=== PATIENT | male | born 1960 | race Two or more races ===

== ENCOUNTER 2016-06-08 10:40 | Day surgery (SDC) | payer OTHER ==
--- NOTE | 2016-06-07 16:29 | HP ---
DATE OF CLINIC: 06/03/2016 BENNETT GASTELUM : 1960 PLANNED PROCEDURE: Right Shoulder Arthroscopic Rotator Cuff Repair, Subacromial Decompression and Possible Biceps Tenotomy vs. Tenodesis DATE OF SURGERY: June 08, 2016 SURGEON: Nadeem Fletcher M.D. HISTORY OF PRESENT ILLNESS Bennett Gastelum is a 55 year old male. * Medication list reviewed with patient allergy list reviewed with patient. * Tried NSAIDS * Tried Physical Therapy * Has not tried Injections The patient is a 55-year-old male who is here with a city jailer about his right shoulder pain. The patient is currently being managed by Irene Jones who is his Work Comp attending. He states that he had an injury when he was working on his work when he sustained a fall, falling directly on this right shoulder. Since then he has had pain. The patient works on a dairy farm and he states that when he was moving some cows he had a slip and injury. He reports that prior to this problem he really didn't have any shoulder pain. 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 The patient has tried anti-inflammatories with limited success. This injury occurred back on 12/19/15. The patient had an MRI which was concerning for a rotator cuff tear and I was asked to see the patient in consultation. He occasionally takes [place] for his discomfort and ideally he would like to have the best thing for his shoulder so he can get back to work without limitations. He states that most of his pain occurs on the anterolateral aspect of his shoulder, especially with overhead lifting. He can still do these activities today, but has pain. He points to the anterolateral aspect of his shoulder where he has most of his pain and discomfort. He also has pain over his bicipital groove. The patient's x-rays and MRI are listed under [facility] and [facility] Luis Daugherty. After discussion and review of treatment options, both non-operative and surgical, he has elected to proceed with surgery and presents today preoperatively. CURRENT MEDICATION * Ibuprofen 600 MG Tablet four times a day as needed for pain with food Label in Welsh, 21 days, 0 refills * [place] 5-325 MG Tablet as directed 1 tab at bedtime PRN- pain, 30 days, 0 refills PAST MEDICAL/SURGICAL HISTORY Reported: No recent change in medical history. Medical: Diabetes Mellitus. Surgical / Procedural: Hernia repair. Medications: Taking OTC pain medication and medication which seems to be helping. Physical Trauma: A fall due to slipping, tripping, or stumbling and trauma to the right shoulder: axial compression. Henia repair. SOCIAL HISTORY Social history unchanged. Behavioral: No tobacco use, not a current smoker, and not chewing tobacco. Smoking status: Never smoker. Alcohol: No consumption of alcohol. Drug Use: Not using drugs. Habits: Good exercise habits. Work: Occupation fence laborer. Job does not require heavy labor. Pumper Gager's Language: PRYDEINIG Dg Curtis. ALLERGIES * No Known Allergies FAMILY HISTORY 7 children living Family history unchanged REVIEW OF SYSTEMS Systemic: No fever and no recent weight change. Cardiovascular: No chest pain or discomfort and no palpitations. Pulmonary: No dyspnea, no cough, and no wheezing. Gastrointestinal: No nausea, no vomiting, no abdominal pain, and no diarrhea. Hematologic: No easy bleeding and no tendency for easy bleeding (no blood clots). Neurological: No motor disturbances and no sensory disturbances. Skin: No skin lesions and no rash. PHYSICAL FINDINGS * Vitals taken 06/03/2016 02:08 pm BP-Sitting L 116/76 mmHg 100 - 120/60 - 80 BP Cuff Size Regular Pulse Rate-Sitting 63 bpm 50 - 100 Pulse Rhythm Regular Temp-Oral 98 F 96 - 101 Height 66 in 64 - 74 Weight 167 lbs 125 - 225 Body Mass Index 27.0 kg/m2 Body Surface Area 1.85 m2 Pain Level 0 Pain Level Note right shoulder General Appearance: * Well developed. * In no acute distress. Eyes: General/bilateral: Extraocular Movements: * Normal. Lungs: * Clear to auscultation. * No wheezing was heard. * No rales/crackles were heard. Cardiovascular: Heart Rate and Rhythm: * Heart rate was normal. * Heart rhythm regular. Abdomen: Palpation: * Abdominal non-tender. Neurological: * Oriented to time, place, and person. Motor: * Dominant Hand = Right Hand. I examined the patient's right and left shoulders. Although he has maintained motion on this right side he does have more pain when he tries to raise his arm above his head. PHYSICAL FINDINGS RIGHT EXTREMITY Shoulder General Appearance: Lateral shoulder scar from a previous vaccine administration, no bruising, no swelling, no gross deformity AROM Forward Flexion: 150 degrees (painful from 90 to 160 degrees) ABD: 110 degrees IR: Highest posterior anatomy reached with thumb: L5 (painful for the patient) PROM Forward Flexion: 170 degrees ABD: 120 degrees (painful for the patient) ER (0): 45 degrees Strength (0-5/5) Deltoid: 5/5 Triceps: 5/5 Biceps: 5/5 EPL,Finger Flexors,Finger Extensors,Wrist Flexors, Wrist Extensors,Intrinsics,Charhouse Worker: 5/5 Rotator cuff Supraspinatus: 4/5 (POSITIVE empty can test) Infraspinatus: 5/5 (no weakness and some pain with resisted external rotation) Subscapularis: 5/5 (negative belly press test) Rotator Cuff Exam Neer's Sign: POSITIVE Hawkin's Sign: POSITIVE Superior Escape: Negative Biceps Exam Bicipital Groove Tenderness: POSITIVE Cumberland's Sign: Negative Speed's Test: POSITIVE Muscle Deformity (Edison): Not present AC Exam AC Tenderness: Not tender Cross-chest Adduction: Negative Bear Hug Test: Negative AC Deformity: Negative Instability Generalized Laxity(thumb to forearm,hyperextension of elbows and knees, hypermobility of multiple joints): Not present, no signs of instability present Other Atrophy/Asymmetry: Normal Medial Scapular Tenderness: Negative Trapezius Pain: Negative Vascular Exam Radial Pulse: 2+ Sensation Gross sensation to light touch in the distribution of Median, Ulnar and Radial nerves present PHYSICAL FINDINGS LEFT EXTREMITY Shoulder General Appearance: The patient has no scars, no bruising, no swelling, no gross deformity AROM Forward Flexion: 170 degrees ABD: 120 degrees IR: Highest posterior anatomy reached with thumb: L4 PROM Forward Flexion: 170 degrees ABD: 120 degrees ER (0): 45 degrees Strength (0-5/5) Deltoid: 5/5 Triceps: 5/5 Biceps: 5/5 EPL,Finger Flexors,Finger Extensors,Wrist Flexors, Wrist Extensors,Intrinsics,Charhouse Worker: 5/5 Rotator cuff Supraspinatus: 5/5 (Negative empty can test) Infraspinatus: 5/5 (no weakness or pain with resisted external rotation) Subscapularis: 5/5 (negative belly press test) Rotator Cuff Exam Neer's Sign: Negative Hawkin's Sign: Negative Superior Escape: Negative Biceps Exam Bicipital Groove Tenderness: Negative Cumberland's Sign: Negative Speed's Test: Negative Muscle Deformity (Edison): Not present AC Exam AC Tenderness: Not tender Cross-chest Adduction: Negative Bear Hug Test: Negative AC Deformity: Negative Instability Generalized Laxity(thumb to forearm,hyperextension of elbows and knees, hypermobility of multiple joints): Not present, no signs of instability present Other Atrophy/Asymmetry: Normal Medial Scapular Tenderness: Negative Trapezius Pain: Negative Vascular Exam Radial Pulse: 2+ Sensation Gross sensation to light touch in the distribution of Median, Ulnar and Radial nerves present TESTS * Test: CBC NO DIFF Report Date: 06/03/2016 WBC 6.0 10*3/mL MCV 89.2 fL RBC 4.74 10*6/uL MCH 30.4 pg MCHC 34.0 g/dL RDW 11.9 % PLATELET COUNT 290 10*3/mL HCT 42.3 % HGB 14.4 g/L * Test: BASIC METABOLIC PROFILE Report Date: 06/03/2016 BUN 16 mg/dL BUN/CREAT RATIO 18 CALCIUM 9.2 mg/dL GLUCOSE 92 mg/dL CREATININE 0.9 mg/dL SODIUM 139 meq/L POTASSIUM 3.9 meq/L CHLORIDE 102 meq/L CARBON DIOXIDE 30 meq/L ANION GAP 11 meq/L GFR 87 IMAGING CXR: 06.03.2016--No signs of acute cardiopulmonary problems. The patient has some minimal left lower lobe atelectasis. X-rays under the last name, Bennett Pinedo and José Luis Daugherty. MRI of the patient's shoulder performed on 02/23/16 demonstrates some artifact, but he does appear to have a full thickness tear in the anterior aspect of the supraspinatus. He does have a degenerative cyst in the humeral head. It is difficult to fully appreciate the size of the tear due to the artifact that is present however, I do think this is present. He also has some evidence of rotator cuff tendonitis. On the axillary views the patient's long head of the biceps is medially subluxated proximally. The subscapularis does appear to be intact. On the sagittal images I see no evidence of chronicity of the tear or signs of muscle atrophy. This degenerative cyst inside the humeral head is located anterolaterally. I reviewed the [facility] MRI report which describes long head of the biceps tendinopathy. I agree with the description of the full thickness tear of the distal supraspinatus. The radiologist thought there was 11mm of retraction with an intact infraspinatus and subscapularis with a possible superior and posterior labral tear. ASSESSMENT Nadeem Fletcher MD made the following assessments * Complete tear of right rotator cuff tendon * Rotator cuff tendonitis -right impingement syndrome * Bicipital tendonitis -right PLAN * OTHER OxyCODONE HCl 5 MG TABS, as directed: one to two tabs by mouth eveyr 4-6 hours as needed for pain, 7 days, 0 refills Keflex 500 MG CAPS, as directed: one tab by mouth every 8 hours until completed after surgery, 2 days, 0 refills Nadeem Fletcher MD ordered the following therapy * Arthroscopy of the shoulder with RCR, SAD and possible biceps tenotomy vs. tenodesis -right THERAPY * Patient not eligible for fall risk assessment. SURGICAL CONSENT We have discussed surgical options including right shoulder arthroscopic rotator cuff repair, possible debridement and possible subacromial decompression and possible biceps tenotomy vs. tenodesis and non-operative management. The patient and I discussed his options. I spoke to him about non-op treatment such as a steroid injection and PT vs surgical fixation of the rotator cuff tear. I showed him my patient education powerpoint presentation where we reviewed how I would preform an arthroscopic repair and possible biceps tenotomy. I told him that he will need to wear a sling post-op and instructed him on the rehab program. I told him that our goal is for the tendon to heal and not re-tear. We spoke about other complications such as infection, shoulder stiffness, hardware malfunction, injury to surrounding nerves and blood vessels as well as other possible complications associated with anesthesia. The patient then signed the consent form. The patient was counseled in detail regarding the diagnosis, treatment options available, prognosis of each treatment option and the potential risks and complications. The risks of surgery include, but are not limited to, anesthetic , neurovascular complications, pulmonary embolism, deep vein thrombosis, wound dehiscence, failure of any or all of the discussed procedures, infection of the joint or surrounding soft tissue, need for revision surgery, chronic pain, limitations in activities of daily living, inability to return to work, and loss of normal range of motion or functional use of the extremity. There is the possibility of failure over time that may require additional operative or non-operative treatment. The patient acknowledged that there are a number of perioperative risks not mentioned here and would still like to proceed. The patient is aware of and understands these risks, and wishes to proceed with the proposed surgical procedure and other procedures as indicated at the time of surgery. The patient has seen her PCP for a preoperative medical risk assessment. The preoperative instructions were reviewed with the patient and all questions were answered. CARE TEAM [facility] Gayle Jones NP Nurse Practitioner PAOLA/sg
[~2016-06-08 10:40] MED LIST: DEXAMETHASONE SOD PHOS 4 MG/1 ML VIAL ONE; FENTANYL 5 ML ONE; LIDOCAINE 2% (PRES FREE) 5 ML VIAL ONE; MIDAZOLAM HCL 1 MG/ML 2ML VIAL ONE; NERVE BLOCK PROCEDURAL TRAY 1 EACH ONE; ONDANSETRON 4 MG/2ML 2 ML VIAL ONE; PROPOFOL 20 ML IV ONE; ROPIVACAINE 0.5% 30 ML VIAL ONE; SUCCINYLCHOLINE CHL 20 MG/ML DOSE ONE
[2016-06-08] MEDS ORDERED: LACTATED RINGERS 1,000 ML ONE (11:05)
[2016-06-08] MEDS ORDERED: CEFAZOLIN SODIUM 2 GRAM PREMIX 100 ML IV ONE (11:06)
[2016-06-08] MEDS ORDERED: IV START KIT ONE (11:06)
[2016-06-08] MEDS ORDERED: CEFAZOLIN SODIUM 2 GRAM PREMIX 100 ML IV PRN (11:15)
[2016-06-08] MEDS ORDERED: DEXAMETHASONE SOD PHOS 4 MG/1 ML VIAL ONE (13:44)
[2016-06-08] MEDS ORDERED: ROCURONIUM BROMIDE 10 MG/ML DOSE IV ONE (13:44)
[2016-06-08] MEDS ORDERED: EPHEDRINE SULFATE UD SYR 25 MG 25 MG/5 ML SYRINGE IV ONE ×2 (13:48→14:32)
[2016-06-08] MEDS ORDERED: PROPOFOL 20 ML IV ONE (13:50)
[2016-06-08] MEDS ORDERED: ONDANSETRON 4 MG/2ML 2 ML VIAL IV PRN ×2 (14:26→16:50)
[2016-06-08] MEDS ORDERED: ATROPINE SULFATE 0.4 MG/1 ML VIAL IV PRN (14:26)
[2016-06-08] MEDS ORDERED: NALOXONE HCL 0.4 MG/ML VIAL IV PRN (14:26)
[2016-06-08] MEDS ORDERED: HYDROMORPHONE HCL 1 MG/ML SYRINGE IV PRN (14:26)
[2016-06-08] MEDS ORDERED: FENTANYL 100 MCG/2 ML VIAL IV PRN (14:26)
[2016-06-08] MEDS ORDERED: HYDRALAZINE HCL 20 MG/1 ML VIAL IV PRN (14:26)
[2016-06-08] MEDS ORDERED: ON-Q PUMP/ROPIVACAINE 0.2% 450 ML in PREMIX BAG 1 EACH NB PRN (14:26)
[2016-06-08] MEDS ORDERED: MEPERIDINE 25 MG/ML SYRINGE IV PRN (14:26)
[2016-06-08] MEDS ORDERED: PROMETHAZINE HCL 25 MG/ML VIAL IM PRN (14:26)
[2016-06-08] MEDS ORDERED: LACTATED RINGERS 1,000 ML IV SCH ×2 (14:30→16:50)
[2016-06-08] MEDS ORDERED: ON-Q PUMP/ROPIVACAINE 0.2% 450 ML ONE (16:03)
[2016-06-08] MEDS ORDERED: GLYCOPYRROLATE 0.2 MG/ML 1ML VIAL ONE (16:05)
[2016-06-08] MEDS ORDERED: NEOSTIGMINE METHYLSULFATE 1 MG/ML DOSE ONE (16:05)
--- NOTE | 2016-06-08 16:14 | PCMBPN ---
Brief Post Op Note: Date of Procedure: 06/08/16 Preoperative Diagnosis: 1. right shoulder rotator cuff tear and biceps tendonitis Postoperative Diagnosis: 1. right shoulder rotator cuff tear, partial long head of the biceps tear Procedure: right shoulder arthroscopic rotator cuff repair, arthroscopic biceps tenotomy, and arthroscopic debridement Surgeon: Nadeem Fletcher MD Assist: Tiana DWYER Anesthesia: GETA, right intrascalene nerve block and catheter for post-op pain relief Findings: pt had a partially torn long head of the biceps. Intact glenoid and humeral head cartilage. Pt had a tear of the supraspinatus repaired with two medial row triple loaded 4.5mm healix BR anchors and one lateral 4.75mm bioswivelok anchor Condition: extubated, stable vitals, transferred to pacu Complications: None IV Fluids: 1600 mLs of LR Urine Output: 700 mLs Estimated Blood Loss: 200 mLs Tourniquet Time: [N/A] Specimens: [N/A] Implants: see above Drains: [N/A] PLAN: NWB on the RUE. SLing for 6 weeks after surgery. Oxycodone for pain control and keflex for ozzy-op abx.
[2016-06-08] MEDS ORDERED: OXYCODONE HCL 5 MG TABLET PO PRN (16:50)
[2016-06-08] MEDS ORDERED: DIPHENHYDRAMINE HCL 50 MG/1 ML VIAL IV PRN (16:50)
[2016-06-08] MEDS ORDERED: MORPHINE SULFATE 2 MG/ML SYRINGE IV PRN (16:50)
[2016-06-08] MEDS ORDERED: ACETAMINOPHEN 325 MG TABLET PO PRN (16:50)
--- NOTE | 2016-06-09 10:41 | OP ---
Alexander RASHEED : 1960 [id number] DATE OF PROCEDURE: June 08, 2016 PREOPERATIVE DIAGNOSES: Right shoulder rotator cuff tear and biceps tendinitis and medial subluxation. POSTOPERATIVE DIAGNOSES: Right shoulder rotator cuff tear, partial long head of the biceps tear and subluxation. PROCEDURE: RIGHT SHOULDER ARTHROSCOPIC ROTATOR CUFF REPAIR, ARTHROSCOPIC BICEPS TENOTOMY AND ARTHROSCOPIC DEBRIDEMENT. SURGEON: Nadeem Fletcher M.D. ADJUSTMENT SUPERVISOR: Eduardo Montiel P.A.-C. ANESTHESIA: General along the right interscalene nerve block and catheter for postoperative pain. FINDINGS: Upon entering the patient's shoulder he had a normal appearing glenohumeral cartilage. The patient did have signs of a medial subluxated long head of the biceps with a partial tear. This was treated with a biceps tenotomy. The patient had a full thickness supraspinatus tear. The tendon was mobile. The footprint was debridement. I fixed this with two medial row anchors, these were two 4.75 mm bioabsorbable Healix anchors and one lateral row 4.75 mm BioSwiveLock anchor. CONDITION: The patient was extubated with stable vital signs and transferred to the PACU. COMPLICATIONS: None. INTRAVENOUS FLUIDS: 1600 mL of Lactate Ringer's. URINE OUTPUT: 700 mL ESTIMATED BLOOD LOSS: 200 mL SPECIMENS: N/A TOURNIQUET TIME: N/A IMPLANTS: See above. DRAINS: N/A PLAN: Patient will be nonweightbearing on the right upper extremity. I expect him to wear a sling for close to 4 to 6 weeks. He will be given a prescription for oxycodone and Keflex for postoperative prescriptions. INDICATIONS: The patient is a 55-year-old male who is a work comp patient who I first saw at the beginning of April regarding a persistent pain in his right shoulder. The patient states that the injury occurred back in December of 2015. He failed nonoperative treatment. An MRI confirmed the finding of a rotator cuff tear and medial subluxation of the long head of the biceps. The patient continued to have pain with overhead motion that limited every day activities. He was getting Ramsay given to him by his primary care provider Gayle Jones and work comp attending. I spoke to the patient regarding his problem. Because of his main language is Kittitian, I did do this with an successfactors consultant. I explained to him the risks as well as benefits of surgery which include, but are not limited to, decreased pain as well as better functional motion. We spoke about common complications associated with the procedure such as infection, hardware malfunction, retear of the rotator cuff, persistent pain, blood clots, anesthesia risks as well as DVT. The patient elected to proceed with surgery. PROCEDURE DESCRIPTION: The patient was seen in the preoperative area. The right arm was signed with the word "Yes" and my initials. I updated and signed the H&P and confirmed with the patient that the consent form matched our proposed procedure. The patient was seen by the anesthesia team who reviewed with the patient about the risks and benefits of right interscalene block and catheter. The patient agreed to have it placed under ultrasound guidance. It was placed without difficulty. The patient was transferred from the preoperative area to the operating theater where they were transferred from the stretcher to the operating room bed. Patient had intraoperative SCD's placed for DVT prophylaxis. The patient had a safety belt placed and then the patient was put to sleep without any problems. The patient was then placed in the left lateral decubitus position making sure an axillary roll was placed and all bony prominences were well-padded. The patient was rotated so that their back was approximately 30 degrees tilted posterior and the bed was turned 90 degrees in the room. The patient was then prepped and draped in sterile fashion first with a Betadine scrub, paint and then chlorhexidine. The patient was then placed in balanced suspension with their arm in the Arthrex STAR sleeve. At this point we performed a final time out confirming that the right side was the correct side, everyone in the room confirmed that the procedure matched the consent form and that xrays and MRI images were on the imaging board. We confirmed that Ancef, 2 gram had been given to the patient approximately 30 minutes prior to the final time out. At this time a spinal needle was used with 30 mL with normal saline to insufflate the joint through the posterior portal. Once the shoulder was insufflated a #15 blade was used to incise the skin by the posterior portal and the scope trocar was placed without incident. At this point the patient's anterior portal was made using a spinal needle from an outside-in technique first using a spinal needle to identify the position in the rotator interval followed by an incision with another #15 blade, placement of a switching stick and a 7mm cannula. Once this was in place a 15-point exam was performed using an arthroscopic probe viewing from posterior to anterior and anterior to posterior. Upon entering the patient's right shoulder his arthroscopic evaluation demonstrated a normal appearing glenoid and humeral head cartilage. He had medial subluxation of the long head of the biceps. The subscapularis was intact. He did have a full thickness tear of the supraspinatus entering into the infraspinatus. This was a crescent type tear. I evaluated the labrum with my arthroscopic probe. I thought this was okay however the long head of the biceps I think was potentially causing the patient pain. I elected to perform an arthroscopic biceps tenotomy. After this was cut with the VAPR wand I turned attention to the supraspinatus. I moved my scope to the subacromial space and the made a lateral portal. I then proceeded to debride the footprint using the bur to make a good base for the tendon to heal back. Because of the patient's MRI showed a degenerative cyst within the anterior lateral aspect of the humeral head, I thought that it was ported to get a medial fixation. I elected to place to medial row triple loaded anchors. I then passed these sutures with an Arthrex FastPass Scorpion and proceeded to tie these down arthroscopically. I then placed a lateral 4.75 mm SwiveLock anchor more central in the greater tuberosity to avoid this cyst. After this was performed the patient did have a small area anteriorly where the rotator cuff was lifted up, however I probed this and thought that it would be acceptable and left it as placed. I elected not to perform a subacromial decompression. At this point I confirmed good hemostasis and was ready to close. I then irrigated the wound closing the skin with interrupted 4-0 Nylon sutures. Then the dressings were placed including Xeroform, 4x4, ABD along with a cryo-cuff and the patient's arm was placed in a sling. All needle and sponge counts were correct. The patient was awoken without difficulty, taken to the recovery room where the patient had good pain control. At this point the patient was awoken without difficulty and transferred to the recovery room. He will be in a sling for six weeks and we will start active assisted range of motion. He will have oxycodone for pain control as well as Keflex for perioperative prescriptions. I attempted to answer all of her questions with the help of a software systems analyst. Job [id number] CC: Jaime Sandoval
== END 2016-06-08 19:24 | disposition home or self-care (01) ==
LOC: SDC 10:40
PROVIDERS: ATTEND Orthopaedic Surgery
PROC: 0LB14ZZ Excision of Right Shoulder Tendon, Percutaneous Endoscopic Approach (ICD-10-PCS; principal; 2016-06-08)
DX: S46.011A Strain of muscle(s) and tendon(s) of the rotator cuff of right shoulder, initial encounter (principal); S46.111A Strain of muscle, fascia and tendon of long head of biceps, right arm, initial encounter; M75.41 Impingement syndrome of right shoulder; W01.0XXA Fall on same level from slipping, tripping and stumbling without subsequent striking against object, initial encounter; Y93.K9 Activity, other involving animal care; Y92.79 Other farm location as the place of occurrence of the external cause; Y99.0 Civilian activity done for income or pay; Z79.1 Long term (current) use of non-steroidal anti-inflammatories (NSAID); Z79.891 Long term (current) use of opiate analgesic
CPT/HCPCS: 29827; 29823; 64415; J3010; J1100 ×2; J2795 ×3; J2250; J2405; J7120; A4306; J0690